=== PATIENT | female | born 1950 | race Caucasian/White ===

== ENCOUNTER 2025-09-03 08:35 | Outpatient (CLI) | payer MEDICARE | END 2025-09-03 08:36 | disposition home or self-care (01) | LOC: CSHSLEEP 08:35 | PROVIDERS: ATTEND Internal Medicine | DX: G47.33 Obstructive sleep apnea (adult) (pediatric) (principal); R53.83 Other fatigue; R06.83 Snoring | CPT/HCPCS: 95800 ==